=== PATIENT | male | born 1935 | race Caucasian/White ===

== ENCOUNTER → 2016-05-02 | Outpatient (CLI) | payer MEDICARE, OTHER ==
[~2016-05-02] MED LIST: ACET1TAB43 PO; ASCO10006 PO; ASPI-586 PO; ATOR40TA70 PO; CIPR250S2 PO; FEXO180T84 PO; FINA5TAB6 PO; FOLI1TAB24 PO; FURO20TA4 PO; GLUC-115 PO; GUAI600T43 PO; IMIQ1CRE TP; LEVO100T7 PO; LOSA100T28 PO; METH2.5T PO; MULT-35 PO; OMEP40CA36 PO; POTA10CA43 PO; TAMS0.4C98 PO; [UNRECOGNIZED DRUG - OTHER] TOP
--- OUTSIDE RECORDS SUMMARY | 2016-05-02 13:54 | XMS REPORT | Continuity of Care Document ---
Author Author [facility] Organization [facility] Address Unknown Phone Unavailable Care Team Providers Care History Faculty Member Name Role Phone CORRY RECINOS MD PCP Insurance Providers Payer Name Policy Number Subscriber Name Relationship [employer] [id number] Daniel Ramires 18 Self / Same As Patient [facility] [employer] [id number] Daniel Ramires Self / Same As Patient Advance Directives Directive Response Recorded Date/Time Advance Directives Yes 11/03/15 10:57am Health Care Power of Associate Product Integrity Engineer Yes 11/03/15 10:57am Resuscitation Status Full Code 11/03/15 10:57am Problems No problem information available. Medications Current Home Medications Medication Dose Units Route Directions Days/Qty Instructions Start Date Atorvastatin Calcium 40 Mg 40 Mg Oral Daily 10/28/15 Folic Acid 1 Mg 1 Mg Oral Twice A Day 10/28/15 Tamsulosin Hcl 0.4 Mg 0.4 Mg Oral Daily 10/28/15 Levothyroxine Sodium 100 Mcg 100 Mcg Oral Daily 10/28/15 Finasteride 5 Mg 5 Mg Oral Daily 10/28/15 Losartan Potassium 100 Mg 100 Mg Oral Daily 10/28/15 Omeprazole 40 Mg 40 Mg Oral Daily 10/28/15 Aspirin 81 Mg 81 Mg Oral Daily 10/28/15 Fexofenadine Hcl 180 Mg 180 Mg Oral Daily 10/28/15 Furosemide 20 Mg 20 Mg Oral 2X Per Week 10/28/15 Potassium Chloride 10 Meq 10 Meq Oral 2X Per Week 10/28/15 Guaifenesin 600 Mg 600 Mg Oral As Needed 10/28/15 Methotrexate Sodium 2.5 Mg 6 Tab Oral Weekly Dec-10/28/15 Ascorbic Acid 1,000 Mg 1,000 Mg Oral Twice A Day 10/28/15 Multivitamin 1 Each 1 Each Oral Daily 10/28/15 Gluc Phillips Dipo Ch/Erik Phillips/C/Piyush 1 Each 1 Each Oral Twice A Day Imiquimod 1 Each 1 Each Topical Bedtime 10/28/15 [Yovani-Strata] 1 5ML Topically Daily 10/28/15 Ciprofloxacin 250 Mg/5 Ml 250 Mg Oral Twice A Day for Prophylactic 3 Days 11/03/15 Acetaminophen With Codeine 1 Each 1 Each Oral As Needed as needed for Pain 15 11/03/15 Social History Social History Problem Response Recorded Date/Time Recent Foreign Travel No 11/03/2015 10:57am Recent Infectious Disease Exposure No 11/03/2015 10:57am Hospitalization with Isolation Denies 11/03/2015 7:40pm HIV/AIDS No 11/03/2015 10:57am Smoking Status Former Smoker 11/03/2015 10:57am Hospitalization with Isolation Denies 11/03/2015 7:40pm Query Response Start Date Stop Date Smoking Status Former Smoker Hospital Discharge Instructions Patient Instructions Physician Instructions New, Converted or Re-Newed RX: RX Given to Pt/Family Plan of Care/Instructions/FU: 1) One month post implant ct simulation at [facility] on 12.01.15 at 10:00 am 2) Keep follow up appointment with Dr. Tejada Activity as Tolerated: Yes Discharge Diet: No Restrictions Care Plan Patient Instructions:: 1) One month post implant ct simulation at [facility] on12.01.15 at 10:00 am2) Keep follow up appointment with Dr. Tejada 3) Instruct on streeter catheter removal--patient may decide to go to 's office on Tuesday 11/07 0800 for removal there Plan of Care Discharge Date 11/03/15 7:00pm Instructions/Education Provided Spinal and Epidural Anesthesia (GEN) Prescriptions See Medication Section Functional Status No functional status results. Allergies, Adverse Reactions, Alerts Allergen Type Severity Reaction Status Last Updated Sulfa (Sulfonamide Antibiotics) ([id number]) Allergy Intermediate RASH Active 10/28/15 Immunizations No immunization records. Vital Signs Acute Vital Signs Vital Response Date/Time Temperature (Fahrenheit) 97.0 degrees F (97.6 - 99.5) 11/03/2015 7:00pm Temperature (Calculated Celsius) 36.27477 degrees C (36.4 - 37.5) 11/03/2015 6:30pm Temperature Source Temporal 11/03/2015 7:00pm Pulse Rate (adult) 70 bpm (60 - 90) 11/03/2015 7:00pm Respiratory Rate 18 bpm (12 - 24) 11/03/2015 7:00pm O2 Sat by Pulse Oximetry 100 % (88 - 100) 11/03/2015 7:00pm Blood Pressure 132/79 mm Hg 11/03/2015 7:00pm Blood Pressure Mean 93 mm Hg 11/03/2015 10:57am Pain Numeric Pain Scale 0-No Pain 11/03/2015 7:00pm Pain Intensity 0 11/03/2015 6:30pm Height (Feet) 6 feet 11/03/2015 10:57am Height (Inches) 0.00 inches 11/03/2015 10:57am Height (Calculated Centimeters) 182.627724 cm 11/03/2015 10:57am Weight (Pounds) 222 pounds 11/03/2015 10:57am Weight (Ounces) 1.0 oz 11/03/2015 10:57am Weight (Calculated Grams) 981331.86 gm 11/03/2015 10:57am Weight (Calculated Kilograms) 100.374375 kilograms 11/03/2015 10:57am Calculated BMI 30.1 11/03/2015 10:57am Capillary Refill Capillary Refill Less Than 3 Seconds 11/03/2015 10:57am Results Pending Laboratory Results Test Name Collection Date/Time Pending Microbiology Results Procedure Source Collection Date/Time Procedures Procedure Status Date Provider(s) Tracing only of electrocardiogram Active 11/03/15 ALEXA RIVERA CRNA Encounters Encounter Location Arrival/Admit Date Discharge/Depart Date Attending Provider Departed [facility] 11/03/15 10:52am 11/03/15 7:00pm EWELINA MERCER MD Departed Clinic [facility] 10/28/15 11:24am 10/28/15 2: 30pm EWELINA MERCER MD Registered Clinic [facility] 10/12/15 11:47am BRYON HART RN Registered Recurring [facility] 10/12/15 11:12am EWELINA MERCER MD
== END ==
LOC: EDSTATUS 01-11 13:48 → ONC 13:51
PROVIDERS: ATTEND Radiology Radiation Oncology
DX: C61 Malignant neoplasm of prostate (principal)
CPT/HCPCS: 36415; 84153; 99213

== ENCOUNTER → 2016-11-07 | Outpatient (CLI) | payer MEDICARE, OTHER | LOC: ONC 13:50 | PROVIDERS: ATTEND Radiology Radiation Oncology | DX: C61 Malignant neoplasm of prostate (principal) | CPT/HCPCS: 36415; 84153; 99213 ==

== ENCOUNTER → 2017-05-10 | Outpatient (CLI) | payer MEDICARE, OTHER | LOC: ONC 09:06 | PROVIDERS: ATTEND Radiology Radiation Oncology | DX: C61 Malignant neoplasm of prostate (principal) | CPT/HCPCS: 36415; 84153 ==

== ENCOUNTER 2017-11-13 13:57 | Outpatient (RCR) | payer MEDICARE, OTHER ==
[~2017-11-13 13:57] MED LIST changes: -LOSA100T28 PO; +LOSA100T8 PO; -METH2.5T PO; +MTX2.5T PO
== END 2017-11-23 | disposition home or self-care (01) ==
LOC: ONC 13:57
PROVIDERS: ATTEND Radiology Radiation Oncology
DX: C61 Malignant neoplasm of prostate (principal)
CPT/HCPCS: 84153; 99213